=== PATIENT | male | born 2005 | race African-American/Black ===

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

== ENCOUNTER 2025-07-14 12:29 | Outpatient (CLI) | payer BC, SELFPAY | END 2025-07-14 12:30 | disposition home or self-care (01) | LOC: INJ CL 12:31 | PROVIDERS: Visit Provider Family Medicine | DX: M54.16 Radiculopathy, lumbar region (principal); M51.26 Other intervertebral disc displacement, lumbar region | CPT/HCPCS: 62323; J0702; Q9966 ==